=== PATIENT | male | born 1935 | race Caucasian/White ===

== ENCOUNTER 2017-10-30 10:51 | Emergency (ER) | payer MEDICARE ==
[~2017-10-30 10:51] MED LIST: ASPI-555 PO; DIGO250T84 PO; DILT360C32 PO; DUTA.5 PO; HYDR-4060 PO; LISI-617 PO; METF10004 PO; MIRT15TA7 PO; PRAV20TA4 PO; TAMS0.4C32 PO; WARF-57 PO
[2017-10-30] MEDS ORDERED: ONDANSETRON HCL MDV 20ML 2 MG/ML VIAL ONE (11:24)
[2017-10-30] MEDS ORDERED: MORPHINE SULFATE 4 MG/1ML SYG ONE (11:25)
[2017-10-30 12:10] LABS: BASOPHILS % (AUTO) 0.1 % (0.0-5.0); EOSINOPHILS % (AUTO) 1.6 % (0.0-8.0); HEMATOCRIT 46.1 % (42-54); LYMPHOCYTES % (AUTO) 22.3 % (21.0-51.0); MEAN CORPUSCULAR HEMOGLOBIN 30.5 pg (27.0-33.0); MEAN CORPUSCULAR HGB CONC 33.5 g/dL (32.0-36.0); MEAN CORPUSCULAR VOLUME 91.1 fL (79-99); MONOCYTES % (AUTO) 4.3 % (3.0-13.0); NEUTROPHILS % (AUTO) 71.7 % (40.0-77.0); PLATELET COUNT (AUTO) 206 K/uL (130-400); RED BLOOD CELL COUNT(AUTO) 5.06 MIL/uL (4.50-6.20); RED CELL DISTRIBUTION WIDTH 14.3 % (11.0-15.5); WHITE BLOOD COUNT (AUTO) 9.7 K/uL (4.8-10.8)
[2017-10-30 12:11] LABS: APPEARANCE,URINE Clear (CLEAR); BILIRUBIN,URINE Negative (NEGATIVE); COLOR,URINE Yellow (YELLOW); GLUCOSE, URINE (UA) Negative (NEGATIVE); KETONES,URINE 15 mg/dL (NEGATIVE); LEUKOCYTE ESTERASE ,URINE Small (NEGATIVE); NITRATE,URINE Negative (NEGATIVE); OCCULT BLOOD,URINE Moderate (NEGATIVE); PROTEIN,URINE Negative (NEGATIVE)
[2017-10-30 12:26] LABS: BACTERIA,URINE Few /HPF (None Seen); MUCUS,URINE Rare LPF (None Seen); SQUAMOUS EPITHELIAL CELL,UR Few /HPF (0-2)
[2017-10-30] MEDS ORDERED: LEVOFLOXACIN 500 MG/D5W 100 ML 100 ML ONE (12:30)
[2017-10-30 12:35] LABS: INR 2.15 (0.85-1.15); PARTIAL THROMBOPLASTIN TIME 36.2 SEC (26.3-35.5); PROTHROMBIN TIME 22.2 SEC (9.6-11.6)
== END 2017-10-30 13:40 | disposition home or self-care (01) ==
LOC: EDH 10:51
DX: R33.9 Retention of urine, unspecified (principal); E10.9 Type 1 diabetes mellitus without complications; E78.5 Hyperlipidemia, unspecified; I10 Essential (primary) hypertension; Z88.0 Allergy status to penicillin; Z79.4 Long term (current) use of insulin
CPT/HCPCS: 36415; 51702; 81001; 85025; 85610; 85730; 96365; 96375; 99284; J1956; J2270

== ENCOUNTER 2019-04-05 09:56 | Inpatient (IN) | payer MEDICARE ==
[~2019-04-05] VITALS: Ht 185.4 cm; Wt 100.2 kg
[~2019-04-05 09:56] MED LIST changes: +METF-446 PO; -METF10004 PO; +MIRT-72 PO; -MIRT15TA7 PO
[2019-04-05 10:22] LABS: BASOPHILS % (AUTO) 0.3 % (0.0-5.0); EOSINOPHILS % (AUTO) 0.7 % (0.0-8.0); HEMATOCRIT 33.8 % (42-54); LYMPHOCYTES % (AUTO) 11.4 % (21.0-51.0); MEAN CORPUSCULAR HGB CONC 32.7 g/dL (32.0-36.0); MEAN CORPUSCULAR VOLUME 94.8 fL (79-99); MONOCYTES % (AUTO) 7.7 % (3.0-13.0); NEUTROPHILS % (AUTO) 79.9 % (40.0-77.0); PLATELET COUNT (AUTO) 226 K/uL (130-400); RED BLOOD CELL COUNT(AUTO) 3.56 MIL/uL (4.50-6.20); RED CELL DISTRIBUTION WIDTH 13.9 % (11.0-15.5)
[2019-04-05 10:28] LABS: POTASSIUM 4.2 mmol/L (3.5-5.1)
[2019-04-05 10:33] LABS: ALBUMIN 2.5 g/dL (3.5-5.0); BILIRUBIN,TOTAL 0.7 mg/dL (0.2-1.0); TOTAL PROTEIN, SERUM 6.7 g/dL (6.0-8.3)
[2019-04-05] MEDS ORDERED: SODIUM CHLORIDE 0.9% 500ML 500 ML IV ONE (12:04)
[2019-04-05 13:07] LABS: APPEARANCE,URINE TURBID (CLEAR); BILIRUBIN,URINE SMALL (NEGATIVE); COLOR,URINE YELLOW (YELLOW); GLUCOSE, URINE (UA) NEGATIVE (NEGATIVE); KETONES,URINE NEGATIVE (NEGATIVE); LEUKOCYTE ESTERASE ,URINE MODERATE (NEGATIVE); NITRATE,URINE NEGATIVE (NEGATIVE); OCCULT BLOOD,URINE LARGE (NEGATIVE); PH,URINE 5.5 (5.0-8.0); PROTEIN,URINE 100 mg/dL (NEGATIVE)
[2019-04-05 13:14] LABS: BACTERIA,URINE Moderate /HPF (None Seen); MUCUS,URINE Rare LPF (None Seen); RBC,URINE TNTC /HPF (0-1); SQUAMOUS EPITHELIAL CELL,UR Rare /HPF (0-2); WBC,URINE >100 /HPF (0-1)
[2019-04-05] MEDS ORDERED: LEVOFLOXACIN 500 MG/D5W 100 ML 100 ML ONE (13:44)
[2019-04-05] MEDS ORDERED: RENAL DOSE IV SCH (15:00)
[2019-04-05] MEDS ORDERED: MORPHINE SULFATE 2 MG/ML 1ML SYG IV PRN (15:00)
[2019-04-05] MEDS ORDERED: PHARMACY COMMUNICATION MISC SCH (15:00)
[2019-04-05] MEDS: SODIUM CHLORIDE 0.9% 1000ML 1,000 ML IV SCH (15:06)
[2019-04-05] MEDS ORDERED: LEVOFLOXACIN 250 MG/D5W 50ML 50 ML IVPB ONE (17:00)
[2019-04-05] MEDS ORDERED: SODIUM CHLORIDE 0.9% 1000ML 1,000 ML IV ONE (17:31)
[2019-04-05 21:15] VITALS: BP 140/71
[2019-04-05] MEDS: HYDROCODONE/ACETAMINOPHEN 5/325 MG TAB PO PRN (21:57)
[2019-04-05] MEDS ORDERED: TAMS-1 PO (23:05)
[2019-04-05] MEDS ORDERED: PRAV20TA4 PO (23:05)
[2019-04-05] MEDS ORDERED: SITA100T12 PO (23:05)
[2019-04-05] MEDS ORDERED: WARF-57 PO (23:05)
[2019-04-05] MEDS ORDERED: INSU100I21 SQ (23:05)
[2019-04-05] MEDS ORDERED: ASPI-555 PO (23:05)
[2019-04-05] MEDS ORDERED: DILT240C97 PO (23:05)
[2019-04-05] MEDS ORDERED: FOLI1 PO (23:05)
[2019-04-05] MEDS ORDERED: DIGO125T87 PO (23:05)
[2019-04-05] MEDS ORDERED: CVS B12 PO (23:05)
[2019-04-05] MEDS ORDERED: LISI-617 PO (23:05)
[2019-04-05] MEDS ORDERED: DUTA0.5C17 PO (23:05)
[2019-04-05] MEDS ORDERED: MIRT15TA6 PO (23:05)
[2019-04-06] VITALS: BP 102/54
[2019-04-06 04:00] VITALS: BP 129/65
[2019-04-06 05:10] LABS: BASOPHILS % (AUTO) 0.3 % (0.0-5.0); EOSINOPHILS % (AUTO) 2.8 % (0.0-8.0); HEMATOCRIT 28.6 % (42-54); MEAN CORPUSCULAR HEMOGLOBIN 30.7 pg (27.0-33.0); MEAN CORPUSCULAR HGB CONC 33.2 g/dL (32.0-36.0); MEAN CORPUSCULAR VOLUME 92.5 fL (79-99); MONOCYTES % (AUTO) 7.7 % (3.0-13.0); NEUTROPHILS % (AUTO) 76.2 % (40.0-77.0); PLATELET COUNT (AUTO) 200 K/uL (130-400); RED BLOOD CELL COUNT(AUTO) 3.09 MIL/uL (4.50-6.20); WHITE BLOOD COUNT (AUTO) 11.1 K/uL (4.8-10.8)
[2019-04-06 05:19] LABS: CREATININE 2.6 mg/dL (0.5-1.5); POTASSIUM 3.9 mmol/L (3.5-5.1)
[2019-04-06] MEDS: SODIUM CHLORIDE 0.9% 1000ML 1,000 ML IV SCH ×2 (06:25→18:17)
[2019-04-06 08:00] VITALS: BP 139/70
[2019-04-06] MEDS ORDERED: ENOXAPARIN SODIUM 30 MG/0.3 ML SQ SCH (09:00)
--- NOTE | 2019-04-06 09:00 | NUR ---
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
[2019-04-06] MEDS ORDERED: HYDRALAZINE HCL 20 MG/ML VIAL IV PRN (11:00)
[2019-04-06 11:52] VITALS: BP 148/70
[2019-04-06] MEDS: INSULIN HUMULIN R 100 UNIT/ML 3ML SQ SCH ×3 (13:00→21:00)
[2019-04-06] MEDS ORDERED: PHARMACY COMMUNICATION MISC SCH ×2 (14:00→14:45)
--- NOTE | 2019-04-06 15:04 | NUR ---
PT STATED TO REFUSE BILAT XRAY OF THE HIP S/P FALL FROM HOME ON 04/03/2019
--- NOTE | 2019-04-06 15:45 | NUR ---
RD NOTIFICATION Pt tolerating current Heart Healthy Diet with no report of GI distress, PO intake at 100%. Pt request of snacks in between meals. RD attempt to provide Coumadin Diet Education, Pt denies need secondary to previous education. Pt LBM 04/04/19. Pt monitored labs: BUN 37, Cr 2.6, GFR 25, Glu 127, Alb 2.5. RD to continue to monitor. Please notify RD as additional nutrition concerns arise. Thank you. Addendum: 04/06/19 at [address] RD Amended: Links added.
[2019-04-06 16:00] VITALS: BP 147/70
[2019-04-06] MEDS: PHARMACY COMMUNICATION MISC SCH ×3 (16:15→18:15)
[2019-04-06] MEDS: WARFARIN SODIUM 5 MG TAB PO SCH (17:09)
[2019-04-06] MEDS: DIGOXIN 125 MCG TABLET PO SCH (17:10)
[2019-04-06] MEDS ORDERED: COMPOUND IV REFRIGERATED 1 EACH IVSOLN MISC PRN (17:45)
[2019-04-06] MEDS ORDERED: VANCOMYCIN 1.25 GM in SODIUM CHLORIDE 0.9% 250 ML IV SCH (17:45)
[2019-04-06] MEDS: TAMSULOSIN HCL 0.4 MG CAP.ER.24H PO SCH (21:57)
[2019-04-06] MEDS: SIMVASTATIN 20 MG TABLET PO SCH (21:57)
[2019-04-06] MEDS: FINASTERIDE 5 MG TABLET PO SCH (22:01)
[2019-04-06] MEDS: MIRTAZAPINE 15 MG TABLET PO SCH (22:01)
[2019-04-06] MEDS: DILTIAZEM HCL 120 MG CAP.SR.24H PO SCH (22:01)
[2019-04-06] MEDS ORDERED: VANCOMYCIN PROTOCOL PER PHARMACY IV SCH (22:15)
[2019-04-07] VITALS (7 sets, daily range): BP systolic 134–156; BP diastolic 56–73
[2019-04-07] MEDS: SODIUM CHLORIDE 0.9% 1000ML 1,000 ML IV SCH ×2 (00:51→20:34)
[2019-04-07 04:52] LABS: INR 2.23 (0.85-1.15); PARTIAL THROMBOPLASTIN TIME 61.8 SEC (26.3-35.5); PROTHROMBIN TIME 22.7 SEC (9.6-11.6)
[2019-04-07] MEDS: INSULIN HUMULIN R 100 UNIT/ML 3ML SQ SCH ×4 (06:43→21:39)
[2019-04-07] MEDS: FOLIC ACID 1 MG TABLET PO SCH (09:28)
[2019-04-07] MEDS: ASPIRIN 81 MG EC TAB PO SCH (09:28)
[2019-04-07] MEDS: CYANOCOBALAMIN (VITAMIN B-12) 1,000 MCG TABLET PO SCH (09:28)
[2019-04-07] MEDS: DILTIAZEM HCL 120 MG CAP.SR.24H PO SCH ×2 (09:29→20:26)
[2019-04-07] MEDS ORDERED: LEVOFLOXACIN 750 MG/D5W 150 ML 150 ML IV SCH (14:00)
[2019-04-07] MEDS: DIGOXIN 125 MCG TABLET PO SCH (16:00)
[2019-04-07] MEDS ORDERED: VANCOMYCIN 750MG + NS 250 ML IV SCH ×2 (18:00)
[2019-04-07] MEDS: WARFARIN SODIUM 5 MG TAB PO SCH (18:00)
--- NOTE | 2019-04-07 19:56 | NUR ---
DIGOXIN Held digoxin S/T pulse was in the high 50s manually for full minute; checked tiwce. Notified Alexus Mahmood, Nurse Practitioner. No further orders.
[2019-04-07] MEDS: SIMVASTATIN 20 MG TABLET PO SCH (20:25)
[2019-04-07] MEDS: TAMSULOSIN HCL 0.4 MG CAP.ER.24H PO SCH (20:26)
[2019-04-07] MEDS: MIRTAZAPINE 15 MG TABLET PO SCH (20:26)
[2019-04-07] MEDS: FINASTERIDE 5 MG TABLET PO SCH (20:26)
[2019-04-08] MEDS: HYDROCODONE/ACETAMINOPHEN 5/325 MG TAB PO PRN (02:55)
[2019-04-08 03:50] VITALS: BP 151/73
[2019-04-08 06:23] LABS: BASOPHILS % (AUTO) 0.4 % (0.0-5.0); EOSINOPHILS % (AUTO) 4.3 % (0.0-8.0); HEMATOCRIT 28.2 % (42-54); LYMPHOCYTES % (AUTO) 14.7 % (21.0-51.0); MEAN CORPUSCULAR HEMOGLOBIN 30.7 pg (27.0-33.0); MEAN CORPUSCULAR HGB CONC 33.3 g/dL (32.0-36.0); MEAN CORPUSCULAR VOLUME 92.2 fL (79-99); MONOCYTES % (AUTO) 8.7 % (3.0-13.0); NEUTROPHILS % (AUTO) 71.9 % (40.0-77.0); PLATELET COUNT (AUTO) 226 K/uL (130-400); RED BLOOD CELL COUNT(AUTO) 3.05 MIL/uL (4.50-6.20); RED CELL DISTRIBUTION WIDTH 13.7 % (11.0-15.5)
[2019-04-08 06:30] LABS: CREATININE 2.1 mg/dL (0.5-1.5); POTASSIUM 4.4 mmol/L (3.5-5.1)
[2019-04-08] MEDS: INSULIN HUMULIN R 100 UNIT/ML 3ML SQ SCH ×3 (06:49→16:30)
[2019-04-08 08:00] VITALS: BP 139/70
[2019-04-08] MEDS: FOLIC ACID 1 MG TABLET PO SCH (09:33)
[2019-04-08] MEDS: DILTIAZEM HCL 120 MG CAP.SR.24H PO SCH (09:34)
[2019-04-08] MEDS: CYANOCOBALAMIN (VITAMIN B-12) 1,000 MCG TABLET PO SCH (09:34)
[2019-04-08] MEDS: ASPIRIN 81 MG EC TAB PO SCH (09:34)
[2019-04-08] MEDS: SODIUM CHLORIDE 0.9% 1000ML 1,000 ML IV SCH (09:35)
[2019-04-08 09:52] LABS: INR 2.51 (0.85-1.15); PARTIAL THROMBOPLASTIN TIME 59.2 SEC (26.3-35.5); PROTHROMBIN TIME 25.4 SEC (9.6-11.6)
[2019-04-08] MEDS ORDERED: LEVO750T46 PO (10:21)
[2019-04-08 12:00] VITALS: BP 120/60
--- NOTE | 2019-04-08 16:10 | NUR ---
FLU VACCINE PT STATES HAD HIS FLU VACCINE AT [facility] ON [facility]. Addendum: 04/08/19 at 1611 by ELIZABETH VILCHIS RN Amended: Links added.
[2019-04-08] MEDS: WARFARIN SODIUM 5 MG TAB PO SCH (16:58)
[2019-04-08] MEDS: DIGOXIN 125 MCG TABLET PO SCH (16:58)
--- NOTE | 2019-04-08 17:50 | NUR ---
DISCHARGE HOME, AND ALSO REVIEW PT TO SEE HIS PRIVATE DR, REGARDING . OFFICE .APPT. PT STATED THAT HE WILL BE SEE DR. Yomi SCRUGGS , ASK REGARDING HIS WARFARIN MEDICATION . AND TO SEE HIM FOR THE INR .TEST .REGARDING CARE. PT STATED THAT HE IS AWARE OF . HIS WARFARIN MEDICATION AND WILL FOLLOWUP THE CARE. AND ALSO WITH DR. JACKSON ,, REVIEW CARE . OF DISCHARGE SUMMARY. .SL TO HIS RFA WAS DC WITH NO HEMATOMA NOTED . SM PRESSURE DRSG APPLICATION ON . . DENIES ANY DISCOMFORT. OR CHEST PAIN. GLAD TO GO HOME, , TODAY .
== END 2019-04-08 17:10 | disposition home or self-care (01) | DRG 690 ==
LOC: EDH 09:56 → EDHIP 14:47 → 3DH 19:22
PROVIDERS: ADMIT Hospitalist; ATTEND Hospitalist
DX: N13.6 Pyonephrosis (principal); I13.0 Hypertensive heart and chronic kidney disease with heart failure and stage 1 through stage 4 chronic kidney disease, or unspecified chronic kidney disease; K57.30 Diverticulosis of large intestine without perforation or abscess without bleeding; I50.9 Heart failure, unspecified; N17.9 Acute kidney failure, unspecified; E78.5 Hyperlipidemia, unspecified; J44.9 Chronic obstructive pulmonary disease, unspecified; I48.91 Unspecified atrial fibrillation; E11.22 Type 2 diabetes mellitus with diabetic chronic kidney disease; N40.0 Benign prostatic hyperplasia without lower urinary tract symptoms; N48.0 Leukoplakia of penis; N35.911 Unspecified urethral stricture, male, meatal; N18.9 Chronic kidney disease, unspecified; Z82.0 Family history of epilepsy and other diseases of the nervous system; Z82.5 Family history of asthma and other chronic lower respiratory diseases; Z82.49 Family history of ischemic heart disease and other diseases of the circulatory system; Z83.3 Family history of diabetes mellitus; Z87.891 Personal history of nicotine dependence; Z79.01 Long term (current) use of anticoagulants; Z90.49 Acquired absence of other specified parts of digestive tract; Z88.6 Allergy status to analgesic agent; Z88.0 Allergy status to penicillin; Z88.8 Allergy status to other drugs, medicaments and biological substances; Z86.718 Personal history of other venous thrombosis and embolism; Z86.711 Personal history of pulmonary embolism
CPT/HCPCS: 36415; 70450; 74176; 80048; 80053; 81001; 82948; 83605; 85025; 85610; 85730; 87040; 87077; 87088; 87186; 97039; G0378; J1650; J1815; J1956; J3370; J7030; J7040

== ENCOUNTER 2019-04-13 23:07 | Emergency (ER) | payer MEDICARE ==
[~2019-04-13 23:07] MED LIST changes: +CVS B12 PO; +DIGO125T87 PO; -DIGO250T84 PO; +DILT240C97 PO; -DILT360C32 PO; -DUTA.5 PO; +DUTA0.5C17 PO; +FOLI1 PO; -HYDR-4060 PO; +INSU100I21 SQ; +LEVO750T46 PO; -METF-446 PO; -MIRT-72 PO; +MIRT15TA6 PO; +SITA100T12 PO; +TAMS-1 PO; -TAMS0.4C32 PO
[2019-04-13 23:42] LABS: BASOPHILS % (AUTO) 1.2 % (0.0-5.0); EOSINOPHILS % (AUTO) 4.2 % (0.0-8.0); HEMATOCRIT 32.2 % (42-54); MEAN CORPUSCULAR HEMOGLOBIN 30.2 pg (27.0-33.0); MEAN CORPUSCULAR HGB CONC 32.6 g/dL (32.0-36.0); MEAN CORPUSCULAR VOLUME 92.8 fL (79-99); NEUTROPHILS % (AUTO) 56.6 % (40.0-77.0); PLATELET COUNT (AUTO) 357 K/uL (130-400); RED BLOOD CELL COUNT(AUTO) 3.47 MIL/uL (4.50-6.20); RED CELL DISTRIBUTION WIDTH 13.9 % (11.0-15.5); WHITE BLOOD COUNT (AUTO) 10.8 K/uL (4.8-10.8)
[2019-04-13 23:50] LABS: CREATININE 2.6 mg/dL (0.5-1.5); POTASSIUM 4.4 mmol/L (3.5-5.1)
[2019-04-13 23:55] LABS: ALBUMIN 2.5 g/dL (3.5-5.0); BILIRUBIN,TOTAL 0.2 mg/dL (0.2-1.0); INR 2.96 (0.85-1.15); PARTIAL THROMBOPLASTIN TIME 52.8 SEC (26.3-35.5); PROTHROMBIN TIME 29.8 SEC (9.6-11.6); TOTAL PROTEIN, SERUM 6.8 g/dL (6.0-8.3)
[2019-04-14 00:08] LABS: B-TYPE NATRIURETIC PEPTIDE 370 pg/mL (0-100)
[2019-04-14] MEDS ORDERED: OCTYL 2-CYANOACRYLATE 1 EACH TP ONE (00:31)
[2019-04-14] MEDS ORDERED: LIDOCAINE HCL 2% JELLY 5 ML ONE (00:42)
[2019-04-14] MEDS ORDERED: PHENAZOPYRIDINE HCL 200 MG TABLET ONE ×2 (00:42→00:57)
[2019-04-14 01:04] LABS: BILIRUBIN,URINE Negative (NEGATIVE); COLOR,URINE Yellow (YELLOW); GLUCOSE, URINE (UA) 250 mg/dL (NEGATIVE); KETONES,URINE Negative (NEGATIVE); LEUKOCYTE ESTERASE ,URINE Large (NEGATIVE); NITRATE,URINE Negative (NEGATIVE); OCCULT BLOOD,URINE Large (NEGATIVE); PROTEIN,URINE POS 1+ mg/dL (NEGATIVE); UROBILINOGEN,URINE 0.2 mg/dL (0.2-1.0)
[2019-04-14 01:05] LABS: APPEARANCE,URINE SLIGHTLY CLOUDY (CLEAR)
[2019-04-14 01:17] LABS: BACTERIA,URINE Few /HPF (None Seen); MUCUS,URINE Rare LPF (None Seen); WBC,URINE 51-100 /HPF (0-1)
[2019-04-14] MEDS ORDERED: CEFTRIAXONE SODIUM 1 GM ONE (01:45)
== END 2019-04-14 03:21 | disposition home or self-care (01) ==
LOC: EDH 23:07
DX: S01.81XA Laceration without foreign body of other part of head, initial encounter (principal); S50.11XA Contusion of right forearm, initial encounter; S50.01XA Contusion of right elbow, initial encounter; S80.211A Abrasion, right knee, initial encounter; R33.9 Retention of urine, unspecified; N39.0 Urinary tract infection, site not specified; I10 Essential (primary) hypertension; E11.9 Type 2 diabetes mellitus without complications; E78.5 Hyperlipidemia, unspecified; I48.91 Unspecified atrial fibrillation; Z87.891 Personal history of nicotine dependence; Z88.0 Allergy status to penicillin; Z87.442 Personal history of urinary calculi; W10.1XXA Fall (on)(from) sidewalk curb, initial encounter; Y93.89 Activity, other specified; Y92.89 Other specified places as the place of occurrence of the external cause; Y99.8 Other external cause status
CPT/HCPCS: 36415; 51702; 70450; 70486; 71045; 72125; 74176; 80053; 81001; 82550; 83880; 84484; 85025; 85610; 85730; 87088; 93005; 96374; 99285; J0696

== ENCOUNTER 2019-08-12 09:56 | Emergency (ER) | payer MEDICARE ==
[~2019-08-12 09:56] MED LIST changes: +DIGO125T71 PO; -DIGO125T87 PO; -DUTA0.5C17 PO; +DUTA0.5C18 PO
[2019-08-12 10:25] LABS: BASOPHILS % (AUTO) 0.2 % (0.0-5.0); HEMATOCRIT 39.3 % (42-54); LYMPHOCYTES % (AUTO) 32.7 % (21.0-51.0); MEAN CORPUSCULAR HEMOGLOBIN 28.5 pg (27.0-33.0); MEAN CORPUSCULAR HGB CONC 31.6 g/dL (32.0-36.0); MEAN CORPUSCULAR VOLUME 90.3 fL (79-99); MONOCYTES % (AUTO) 6.1 % (3.0-13.0); NEUTROPHILS % (AUTO) 55.4 % (40.0-77.0); PLATELET COUNT (AUTO) 289 K/uL (130-400); RED BLOOD CELL COUNT(AUTO) 4.35 MIL/uL (4.50-6.20); RED CELL DISTRIBUTION WIDTH 13.7 % (11.0-15.5); WHITE BLOOD COUNT (AUTO) 13.5 K/uL (4.8-10.8)
[2019-08-12] MEDS ORDERED: MORPHINE SULFATE 4 MG/1ML SYG ONE (10:40)
[2019-08-12 10:47] LABS: CREATININE 2.4 mg/dL (0.5-1.5); POTASSIUM 4.4 mmol/L (3.5-5.1)
[2019-08-12 12:13] LABS: APPEARANCE,URINE TURBID (CLEAR); BILIRUBIN,URINE NEGATIVE (NEGATIVE); COLOR,URINE YELLOW (YELLOW); GLUCOSE, URINE (UA) 250 mg/dL (NEGATIVE); KETONES,URINE NEGATIVE (NEGATIVE); LEUKOCYTE ESTERASE ,URINE MODERATE (NEGATIVE); NITRATE,URINE NEGATIVE (NEGATIVE); OCCULT BLOOD,URINE LARGE (NEGATIVE); PH,URINE 5.5 (5.0-8.0); PROTEIN,URINE 30 mg/dL (NEGATIVE); UROBILINOGEN,URINE 0.2 mg/dL (0.2-1.0)
[2019-08-12 13:14] LABS: BACTERIA,URINE Moderate /HPF (None Seen); WBC,URINE 26-50 /HPF (0-1)
[2019-08-12 13:15] LABS: YEAST,URINE BUDDING Moderate /HPF (None Seen)
[2019-08-12] MEDS ORDERED: LEVOFLOXACIN 500 MG TABLET ONE (13:37)
== END 2019-08-12 14:30 | disposition home or self-care (01) ==
LOC: EDH 09:56
DX: I12.9 Hypertensive chronic kidney disease with stage 1 through stage 4 chronic kidney disease, or unspecified chronic kidney disease (principal); E11.22 Type 2 diabetes mellitus with diabetic chronic kidney disease; N18.9 Chronic kidney disease, unspecified; N39.0 Urinary tract infection, site not specified; R33.9 Retention of urine, unspecified; I48.91 Unspecified atrial fibrillation; E78.5 Hyperlipidemia, unspecified; Z87.442 Personal history of urinary calculi; Z88.0 Allergy status to penicillin; Z79.4 Long term (current) use of insulin
CPT/HCPCS: 36415; 51702; 80048; 81001; 85025; 87088; 99284; J2270

== ENCOUNTER 2019-10-19 21:38 | Emergency (ER) | payer MEDICARE ==
[~2019-10-19 21:38] MED LIST changes: -ASPI-555 PO; +ASPI-556 PO
[2019-10-19] MEDS ORDERED: LIDOCAINE HCL 2% JELLY 5 ML ONE (22:00)
[2019-10-19 22:17] LABS: BASOPHILS % (AUTO) 0.2 % (0.0-5.0); EOSINOPHILS % (AUTO) 5.4 % (0.0-8.0); HEMATOCRIT 38.6 % (42-54); LYMPHOCYTES % (AUTO) 37.1 % (21.0-51.0); MEAN CORPUSCULAR HEMOGLOBIN 29.7 pg (27.0-33.0); MEAN CORPUSCULAR HGB CONC 32.4 g/dL (32.0-36.0); MEAN CORPUSCULAR VOLUME 91.7 fL (79-99); MONOCYTES % (AUTO) 6.4 % (3.0-13.0); NEUTROPHILS % (AUTO) 50.6 % (40.0-77.0); PLATELET COUNT (AUTO) 207 K/uL (130-400); RED BLOOD CELL COUNT(AUTO) 4.21 MIL/uL (4.50-6.20); RED CELL DISTRIBUTION WIDTH 14.1 % (11.0-15.5); WHITE BLOOD COUNT (AUTO) 12.2 K/uL (4.8-10.8)
[2019-10-19 22:29] LABS: CREATININE 2.4 mg/dL (0.5-1.5); POTASSIUM 4.1 mmol/L (3.5-5.1)
[2019-10-19] MEDS ORDERED: LEVOFLOXACIN 500 MG TABLET ONE (22:46)
[2019-10-19 22:54] LABS: APPEARANCE,URINE Cloudy (CLEAR); BILIRUBIN,URINE Negative (NEGATIVE); COLOR,URINE Yellow (YELLOW); GLUCOSE, URINE (UA) >=1000 mg/dL (NEGATIVE); KETONES,URINE Negative (NEGATIVE); LEUKOCYTE ESTERASE ,URINE Moderate (NEGATIVE); NITRATE,URINE Negative (NEGATIVE); OCCULT BLOOD,URINE Large (NEGATIVE); PROTEIN,URINE POS 1+ mg/dL (NEGATIVE); UROBILINOGEN,URINE 0.2 mg/dL (0.2-1.0)
[2019-10-19 23:26] LABS: BACTERIA,URINE Moderate /HPF (None Seen); MUCUS,URINE Few LPF (None Seen); RBC,URINE 26-50 /HPF (0-1); SQUAMOUS EPITHELIAL CELL,UR Few /HPF (0-2); WBC,URINE 51-100 /HPF (0-1)
== END 2019-10-20 00:42 | disposition home or self-care (01) ==
LOC: EDH 21:38
DX: N39.0 Urinary tract infection, site not specified (principal); R33.9 Retention of urine, unspecified; N28.9 Disorder of kidney and ureter, unspecified; E11.9 Type 2 diabetes mellitus without complications; E78.5 Hyperlipidemia, unspecified; I10 Essential (primary) hypertension; I48.91 Unspecified atrial fibrillation; Z88.0 Allergy status to penicillin
CPT/HCPCS: 36415; 80048; 81001; 85025; 87077; 87088; 87186

== ENCOUNTER 2020-04-05 23:03 | Emergency (ER) | payer MEDICARE ==
[2020-04-05 23:49] LABS: APPEARANCE,URINE Cloudy (CLEAR); BILIRUBIN,URINE Negative (NEGATIVE); COLOR,URINE Yellow (YELLOW); GLUCOSE, URINE (UA) Negative (NEGATIVE); KETONES,URINE Negative (NEGATIVE); LEUKOCYTE ESTERASE ,URINE Large (NEGATIVE); NITRATE,URINE Negative (NEGATIVE); OCCULT BLOOD,URINE Small (NEGATIVE); PH,URINE 5.5 (5.0-8.0); PROTEIN,URINE Trace mg/dL (NEGATIVE); UROBILINOGEN,URINE 0.2 mg/dL (0.2-1.0)
[2020-04-06] LABS: BASOPHILS % (AUTO) 0.2 % (0.0-5.0); EOSINOPHILS % (AUTO) 6.3 % (0.0-8.0); HEMATOCRIT 40.4 % (42-54); LYMPHOCYTES % (AUTO) 31.1 % (21.0-51.0); MEAN CORPUSCULAR HEMOGLOBIN 29.7 pg (27.0-33.0); MEAN CORPUSCULAR HGB CONC 32.4 g/dL (32.0-36.0); MEAN CORPUSCULAR VOLUME 91.6 fL (79-99); MONOCYTES % (AUTO) 5.9 % (3.0-13.0); NEUTROPHILS % (AUTO) 56.1 % (40.0-77.0); PLATELET COUNT (AUTO) 189 K/uL (130-400); RED BLOOD CELL COUNT(AUTO) 4.41 MIL/uL (4.50-6.20); RED CELL DISTRIBUTION WIDTH 13.5 % (11.0-15.5); WHITE BLOOD COUNT (AUTO) 10.4 K/uL (4.8-10.8)
[2020-04-06 00:08] LABS: CREATININE 2.9 mg/dL (0.5-1.5); POTASSIUM 4.3 mmol/L (3.5-5.1)
[2020-04-06 00:13] LABS: ALBUMIN 3.1 g/dL (3.5-5.0); BILIRUBIN,TOTAL 0.2 mg/dL (0.2-1.0); TOTAL PROTEIN, SERUM 6.5 g/dL (6.0-8.3)
[2020-04-06 00:14] LABS: BACTERIA,URINE Few /HPF (None Seen); WBC,URINE 51-100 /HPF (0-1)
[2020-04-06 00:15] LABS: MUCUS,URINE Few LPF (None Seen)
[2020-04-06] MEDS ORDERED: CEFTRIAXONE SODIUM 1 GM ONE (00:29)
[2020-04-06] MEDS ORDERED: SULFAMETHOX-TMP DS 800/160 TAB ONE (00:51)
== END 2020-04-06 01:14 | disposition home or self-care (01) ==
LOC: EDH 23:03
DX: N39.0 Urinary tract infection, site not specified (principal); I12.0 Hypertensive chronic kidney disease with stage 5 chronic kidney disease or end stage renal disease; E11.22 Type 2 diabetes mellitus with diabetic chronic kidney disease; N18.6 End stage renal disease; E78.5 Hyperlipidemia, unspecified; I48.91 Unspecified atrial fibrillation; Z87.891 Personal history of nicotine dependence; Z88.0 Allergy status to penicillin
CPT/HCPCS: 36415; 51702; 80053; 81001; 85025; 87088; 96374; 99284; J0696

== ENCOUNTER 2020-05-31 17:56 | Emergency (ER) | payer MEDICARE ==
[2020-05-31] MEDS ORDERED: LEVOFLOXACIN 500 MG/D5W 100 ML 100 ML IV ONE (17:57)
[2020-05-31] MEDS ORDERED: ALBUTEROL INHALER 90MCG/INH IH ONE (18:53)
[2020-05-31] MEDS ORDERED: ACETAMINOPHEN-CODEINE 300/30MG TAB ONE (18:54)
[2020-05-31 18:55] LABS: BASOPHILS % (AUTO) 0.1 % (0.0-5.0); EOSINOPHILS % (AUTO) 1.5 % (0.0-8.0); HEMATOCRIT 37.3 % (42-54); LYMPHOCYTES % (AUTO) 17.1 % (21.0-51.0); MEAN CORPUSCULAR HEMOGLOBIN 30.4 pg (27.0-33.0); MEAN CORPUSCULAR VOLUME 92.3 fL (79-99); MONOCYTES % (AUTO) 7.9 % (3.0-13.0); NEUTROPHILS % (AUTO) 72.9 % (40.0-77.0); PLATELET COUNT (AUTO) 191 K/uL (130-400); RED BLOOD CELL COUNT(AUTO) 4.04 MIL/uL (4.50-6.20); RED CELL DISTRIBUTION WIDTH 14.3 % (11.0-15.5); WHITE BLOOD COUNT (AUTO) 13.6 K/uL (4.8-10.8)
[2020-05-31 19:10] LABS: CREATININE 3.1 mg/dL (0.5-1.5); POTASSIUM 4.5 mmol/L (3.5-5.1)
[2020-05-31 19:15] LABS: ALBUMIN 2.8 g/dL (3.5-5.0); TOTAL PROTEIN, SERUM 6.9 g/dL (6.0-8.3)
[2020-05-31 19:50] LABS: APPEARANCE,URINE CLOUDY (CLEAR); BILIRUBIN,URINE NEGATIVE (NEGATIVE); COLOR,URINE YELLOW (YELLOW); GLUCOSE, URINE (UA) NEGATIVE (NEGATIVE); KETONES,URINE NEGATIVE (NEGATIVE); LEUKOCYTE ESTERASE ,URINE MODERATE (NEGATIVE); NITRATE,URINE NEGATIVE (NEGATIVE); OCCULT BLOOD,URINE SMALL (NEGATIVE); PH,URINE 5.5 (5.0-8.0); PROTEIN,URINE 30 mg/dL (NEGATIVE); UROBILINOGEN,URINE 0.2 mg/dL (0.2-1.0)
[2020-05-31 19:56] LABS: BACTERIA,URINE Few /HPF (None Seen); SQUAMOUS EPITHELIAL CELL,UR Few /HPF (0-2); WBC,URINE 26-50 /HPF (0-1)
[2020-05-31 19:57] LABS: AMORPHOUS SEDIMENT,UR Few /LPF (None Seen)
[2020-05-31] MEDS ORDERED: AZITHROMYCIN 250 MG TABLET PO ONE (20:21)
== END 2020-05-31 20:33 | disposition home or self-care (01) ==
LOC: EDH 17:56
DX: J20.9 Acute bronchitis, unspecified (principal); Z20.828 Contact with and (suspected) exposure to other viral communicable diseases; I48.91 Unspecified atrial fibrillation; E11.9 Type 2 diabetes mellitus without complications; E78.5 Hyperlipidemia, unspecified; I10 Essential (primary) hypertension; Z88.0 Allergy status to penicillin
CPT/HCPCS: 36415; 71045; 80053; 81001; 82550; 84484; 85025; 87040 ×2; 87077; 87088; 87186; 87426; 87804 ×2; 87880; 93005; 96374; 99285; J1956; U0003

== ENCOUNTER 2021-05-30 00:44 | Emergency (ER) | payer MEDICARE ==
[~2021-05-30] VITALS: Ht 182.9 cm; Wt 93.4 kg
[~2021-05-30 00:44] MED LIST changes: -DUTA0.5C18 PO; +DUTA0.5C37 PO; -LISI-617 PO; +LISI5TAB21 PO; +MIRT-22 PO; -MIRT15TA6 PO
[2021-05-30 01:19] LABS: APPEARANCE,URINE Cloudy (CLEAR); BILIRUBIN,URINE Negative (NEGATIVE); COLOR,URINE Yellow (YELLOW); GLUCOSE, URINE (UA) TRACE mg/dL (NEGATIVE); KETONES,URINE Negative (NEGATIVE); LEUKOCYTE ESTERASE ,URINE Moderate (NEGATIVE); NITRATE,URINE Negative (NEGATIVE); OCCULT BLOOD,URINE Moderate (NEGATIVE); PROTEIN,URINE Trace mg/dL (NEGATIVE); UROBILINOGEN,URINE 0.2 mg/dL (0.2-1.0)
[2021-05-30 01:35] LABS: SQUAMOUS EPITHELIAL CELL,UR Moderate /HPF (0-2); WBC,URINE 51-100 /HPF (0-1)
[2021-05-30 01:36] LABS: BACTERIA,URINE Few /HPF (None Seen)
[2021-05-30] MEDS ORDERED: PHARMACY COMMUNICATION MISC SCH ×2 (04:00→04:30)
[2021-05-30] MEDS ORDERED: CEFTRIAXONE 1G VIAL IVP ONE (04:00)
[2021-05-30 04:16] LABS: BASOPHILS % (AUTO) 0.2 % (0.0-5.0); EOSINOPHILS % (AUTO) 3.8 % (0.0-8.0); HEMATOCRIT 37.8 % (42-54); LYMPHOCYTES % (AUTO) 24.6 % (21.0-51.0); MEAN CORPUSCULAR HEMOGLOBIN 30.8 pg (27.0-33.0); MEAN CORPUSCULAR HGB CONC 32.8 g/dL (32.0-36.0); MONOCYTES % (AUTO) 6.6 % (3.0-13.0); NEUTROPHILS % (AUTO) 64.4 % (40.0-77.0); PLATELET COUNT (AUTO) 184 K/uL (130-400); RED BLOOD CELL COUNT(AUTO) 4.02 MIL/uL (4.50-6.20); RED CELL DISTRIBUTION WIDTH 13.2 % (11.0-15.5); WHITE BLOOD COUNT (AUTO) 11.4 K/uL (4.8-10.8)
[2021-05-30 04:27] LABS: POTASSIUM 4.5 mmol/L (3.5-5.1)
[2021-05-30 04:32] LABS: ALBUMIN 3.2 g/dL (3.5-5.0); BILIRUBIN,TOTAL 0.4 mg/dL (0.2-1.0); TOTAL PROTEIN, SERUM 6.2 g/dL (6.0-8.3)
[2021-05-30] MEDS ORDERED: CEPH500B PO (04:53)
[2021-05-30 06:08] VITALS: BP 132/72
[2021-05-30 06:43] LABS: CREATININE 2.3 mg/dL (0.5-1.5)
== END 2021-05-30 06:12 | disposition home or self-care (01) ==
LOC: EDH 00:44
DX: R33.9 Retention of urine, unspecified (principal); N39.0 Urinary tract infection, site not specified; E11.22 Type 2 diabetes mellitus with diabetic chronic kidney disease; N18.9 Chronic kidney disease, unspecified; J44.9 Chronic obstructive pulmonary disease, unspecified; Z79.01 Long term (current) use of anticoagulants; Z88.0 Allergy status to penicillin; Z79.4 Long term (current) use of insulin; Z79.82 Long term (current) use of aspirin; Z79.899 Other long term (current) drug therapy; Z90.49 Acquired absence of other specified parts of digestive tract; Z90.79 Acquired absence of other genital organ(s)
CPT/HCPCS: 36415; 51702; 80053; 81001; 85025; 87077; 87088; 87186; 96374; 99284; J0696